=== PATIENT | male | born 1975 | race Caucasian/White ===

== ENCOUNTER 2017-09-19 09:51 | Emergency (ER) | payer MEDICAID ==
[~2017-09-19] VITALS: Ht 177.8 cm; Wt 81.8 kg
[2017-09-19 10:51] VITALS: Ht 177.8 cm; Wt 81.8 kg
[2017-09-19] MEDS ORDERED: IBUPROFEN800 MG PO (12:50)
[2017-09-19] MEDS ORDERED: ACETAMINOPHEN500 M1 PO (12:50)
[2017-09-19] MEDS ORDERED: CYCLOBENZAPRINE10 MG PO ×2 (12:54)
[2017-09-19 13:29] VITALS: BP 142/80
== END 2017-09-19 13:30 | disposition home or self-care (01) ==
LOC: D.ER 09:51
DX: M54.5 Low back pain (principal); F17.200 Nicotine dependence, unspecified, uncomplicated